=== PATIENT | female | born 1995 | race Caucasian/White ===

== ENCOUNTER 2020-05-11 14:44 | Inpatient (IN) | payer MEDICARE, MEDICAID ==
[~2020-05-11] VITALS: Ht 165.1 cm; Wt 81.4 kg
[2020-05-11] MEDS ORDERED: MOM30 PO (14:52)
[2020-05-11] MEDS ORDERED: IBUP-2070 PO (14:52)
[2020-05-11] MEDS ORDERED: HYD25 PO (14:52)
[2020-05-11] MEDS ORDERED: CHLO25TA47 PO (14:52)
[2020-05-11] MEDS ORDERED: MIRT-89 PO (14:52)
[2020-05-11] MEDS ORDERED: ACET-2247 PO (14:52)
[2020-05-11] MEDS ORDERED: METH20CP12 PO (14:52)
[2020-05-11 16:30] LABS: AMPHET/METH SCREEN,URINE NEGATIVE (NEGATIVE); BARBITURATE SCREEN, URINE NEGATIVE (NEGATIVE); BENZODIAZEPINES SCREEN,URINE NEGATIVE (NEGATIVE); CANNABINOID SCREEN,URINE NEGATIVE (NEGATIVE); COCAINE SCREEN,URINE NEGATIVE (NEGATIVE); METHADONE SCREEN, URINE NEGATIVE (NEGATIVE); OPIATE SCREEN,URINE NEGATIVE (NEGATIVE)
[2020-05-11 16:32] LABS: PHENCYCLIDINE SCREEN,URINE NEGATIVE (NEGATIVE)
[2020-05-11 16:53] LABS: ANION GAP 10 mmol/L (8-16); CALCIUM, TOTAL 8.6 mg/dL (8.8-10.5); CARBON DIOXIDE 25 mmol/L (22-29); CHLORIDE 105 mmol/L (98-107); CREATININE 0.59 mg/dL (0.60-1.30); GLOMERULAR FILTR. RATE CALC > 60 mL/min (>60); GLUCOSE,RANDOM 88 mg/dL (70-110); POTASSIUM 3.6 mmol/L (3.5-5.1); SODIUM SERUM 140 mmol/L (136-145); UREA NITROGEN, BLOOD 8 mg/dL (7-18)
[2020-05-11 16:59] LABS: ALANINE AMINOTRANSFERASE 29 U/L (12-78); ALBUMIN 3.5 g/dL (3.4-5.0); ALKALINE PHOSPHATASE 102 U/L (46-116); ASPARTATE AMINOTRANSFERASE 20 U/L (15-37); BILIRUBIN,TOTAL 0.4 mg/dL (0.1-1.0); TOTAL PROTEIN, SERUM 7.3 g/dL (6.4-8.2)
[2020-05-11 17:23] LABS: BASOPHILS % (AUTO) 0.3 % (0.0-2.0); EOSINOPHILS % (AUTO) 3.1 % (1.0-6.0); HEMATOCRIT 37.2 % (36-46); LYMPHOCYTES # (AUTO) 1.6 K/uL (1.0-4.8); LYMPHOCYTES % (AUTO) 23.8 % (22.0-44.0); MEAN CORPUSCULAR HEMOGLOBIN 23.7 pg (26.0-34.0); MEAN CORPUSCULAR HGB CONC 32.2 G/dL (31.0-37.0); MEAN CORPUSCULAR VOLUME 74 fL (80-100); MONOCYTES # (AUTO) 0.5 K/uL (0.1-1.0); MONOCYTES % (AUTO) 7.9 % (2.0-9.0); NEUTROPHILS # (AUTO) 4.3 K/uL (1.8-7.7); NEUTROPHILS % (AUTO) 64.9 % (40.0-70.0); PLATELET COUNT (AUTO) 239 K/uL (150-450); RED BLOOD CELL COUNT(AUTO) 5.04 MIL/uL (4.00-5.20); RED CELL DISTRIBUTION WIDTH 16.8 % (11.5-14.5)
[2020-05-11] MEDS ORDERED: ChlorproMAZINE HCL 100 MG TABLET PO PRN (17:30)
[2020-05-11] MEDS ORDERED: PROMETHAZINE HCL 25 MG TABLET PO PRN (17:30)
[2020-05-11] MEDS ORDERED: MAG HYDROX/AL HYDROX/SIMETH ES 30 ML SUSPENSION UDCUP PO PRN (17:30)
[2020-05-11] MEDS ORDERED: HydrOXYzine PAMOATE 50 MG CAPSULE PO PRN (17:30)
[2020-05-11] MEDS ORDERED: TUBERCULIN, PURIFIED PROTEIN DERIVATIVE 5 TU/0.1 ML SYRINGE ID ONE (17:30)
[2020-05-11] MEDS ORDERED: ACETAMINOPHEN 325 MG TABLET PO PRN (17:30)
[2020-05-11] MEDS ORDERED: GuaiFENesin/D-METHORPHAN [SUGAR-FREE] 200-20MG/10 ML SYRUP UDCUP PO PRN (17:30)
[2020-05-11] MEDS ORDERED: MAGNESIUM HYDROXIDE SUSPENSION 30 ML UDCUP PO PRN (17:30)
[2020-05-11] MEDS ORDERED: ZOLPIDEM TARTRATE 10 MG TABLET PO PRN (17:30)
[2020-05-11] MEDS ORDERED: LOPERAMIDE HCL 2 MG CAPSULE PO PRN (17:30)
[2020-05-11] MEDS ORDERED: LORazepam 2 MG TABLET PO PRN (17:30)
[2020-05-11 18:58] VITALS: BP 134/89
[2020-05-11 19:05] LABS: HCG,QUANTITATIVE < 1 mIU/mL (0-6)
[2020-05-11] MEDS: THIAMINE 100 MG TABLET PO SCH (20:29)
[2020-05-11] MEDS: DIVALPROEX SODIUM 500 MG ER TABLET PO SCH (20:30)
[2020-05-11] MEDS: MIRTAZAPINE 15 MG TABLET PO SCH (20:30)
[2020-05-11] MEDS: ChlorproMAZINE HCL 25 MG TABLET PO SCH (20:30)
[2020-05-12 07:28] LABS: HEMOGLOBIN A1C 5.4 % (3.8-5.6)
[2020-05-12 07:29] LABS: CHOL/HDL RATIO 3.4 (3.9-5.7); THYROID STIMULATING HORMONE 1.38 uIU/mL (0.36-3.74)
[2020-05-12] MEDS: FOLIC ACID 1 MG TABLET PO SCH (08:56)
[2020-05-12] MEDS: MULTIVITAMINS WITH MINERALS, THERAPEUTIC TABLET PO SCH (08:56)
[2020-05-12] MEDS: THIAMINE 100 MG TABLET PO SCH ×2 (08:56→17:23)
[2020-05-12] MEDS: ChlorproMAZINE HCL 25 MG TABLET PO SCH ×3 (08:56→17:23)
[2020-05-12] MEDS: ATOMOXETINE HCL 25 MG CAPSULE PO SCH (08:56)
[2020-05-12 10:02] VITALS: BP 110/83
[2020-05-12 12:33] VITALS: BP 114/76
[2020-05-12 18:25] VITALS: BP 103/67
[2020-05-12] MEDS: MIRTAZAPINE 15 MG TABLET PO SCH (20:39)
[2020-05-12] MEDS: DIVALPROEX SODIUM 500 MG ER TABLET PO SCH (20:39)
[2020-05-13 08:00] VITALS: BP 137/95
[2020-05-13] MEDS: ATOMOXETINE HCL 25 MG CAPSULE PO SCH (08:35)
[2020-05-13] MEDS: MULTIVITAMINS WITH MINERALS, THERAPEUTIC TABLET PO SCH (08:35)
[2020-05-13] MEDS: ChlorproMAZINE HCL 25 MG TABLET PO SCH ×3 (08:35→16:52)
[2020-05-13] MEDS: FOLIC ACID 1 MG TABLET PO SCH (08:35)
[2020-05-13] MEDS: THIAMINE 100 MG TABLET PO SCH ×2 (08:35→16:52)
[2020-05-13 16:00] VITALS: BP 111/61
[2020-05-13] MEDS: DIVALPROEX SODIUM 500 MG ER TABLET PO SCH (20:29)
[2020-05-13] MEDS: MIRTAZAPINE 30 MG TABLET PO SCH (20:30)
[2020-05-14] MEDS ORDERED: ATOMOXETINE HCL 40 MG CAPSULE PO SCH ×2 (09:00)
[2020-05-14] MEDS ORDERED: ATOMOXETINE HCL 10 MG CAPSULE PO SCH (09:00)
[2020-05-14] MEDS: MULTIVITAMINS WITH MINERALS, THERAPEUTIC TABLET PO SCH (09:06)
[2020-05-14] MEDS: THIAMINE 100 MG TABLET PO SCH ×2 (09:06→16:21)
[2020-05-14] MEDS: FOLIC ACID 1 MG TABLET PO SCH (09:06)
[2020-05-14] MEDS: ChlorproMAZINE HCL 25 MG TABLET PO SCH ×3 (09:07→16:21)
[2020-05-14] MEDS: ATOMOXETINE HCL 40 MG CAPSULE PO SCH (09:11)
[2020-05-14 13:44] VITALS: BP 114/68
[2020-05-14 16:16] VITALS: BP 103/70
[2020-05-14] MEDS: DIVALPROEX SODIUM 500 MG ER TABLET PO SCH (20:07)
[2020-05-14] MEDS: MIRTAZAPINE 30 MG TABLET PO SCH (20:07)
[2020-05-15 00:25] VITALS: BP 129/76
[2020-05-15 08:55] VITALS: BP 116/83
[2020-05-15] MEDS: ChlorproMAZINE HCL 25 MG TABLET PO SCH ×3 (09:17→20:18)
[2020-05-15] MEDS: ATOMOXETINE HCL 40 MG CAPSULE PO SCH (09:17)
[2020-05-15] MEDS: FOLIC ACID 1 MG TABLET PO SCH (09:17)
[2020-05-15] MEDS: MULTIVITAMINS WITH MINERALS, THERAPEUTIC TABLET PO SCH (09:17)
[2020-05-15] MEDS: THIAMINE 100 MG TABLET PO SCH ×2 (09:17→20:18)
[2020-05-15 12:13] VITALS: BP 116/83
[2020-05-15 16:00] VITALS: BP 126/73
[2020-05-15] MEDS: DIVALPROEX SODIUM 500 MG ER TABLET PO SCH (20:18)
[2020-05-15] MEDS: MIRTAZAPINE 30 MG TABLET PO SCH (20:18)
[2020-05-16 08:00] VITALS: BP 115/78
[2020-05-16] MEDS: ATOMOXETINE HCL 40 MG CAPSULE PO SCH (11:00)
[2020-05-16] MEDS: ChlorproMAZINE HCL 25 MG TABLET PO SCH ×3 (11:03→16:25)
[2020-05-16] MEDS: FOLIC ACID 1 MG TABLET PO SCH (11:05)
[2020-05-16] MEDS: MULTIVITAMINS WITH MINERALS, THERAPEUTIC TABLET PO SCH (11:05)
[2020-05-16] MEDS: THIAMINE 100 MG TABLET PO SCH ×3 (11:05→16:25)
[2020-05-16] MEDS: CloNIDine HCL 0.1 MG TABLET PO SCH ×2 (11:13→17:31)
[2020-05-16 16:00] VITALS: BP 101/67
[2020-05-16] MEDS: DIVALPROEX SODIUM 500 MG ER TABLET PO SCH (20:11)
[2020-05-16] MEDS: MIRTAZAPINE 30 MG TABLET PO SCH (20:11)
[2020-05-17 08:00] VITALS: BP 128/87
[2020-05-17] MEDS: ATOMOXETINE HCL 40 MG CAPSULE PO SCH (09:00)
[2020-05-17] MEDS: ChlorproMAZINE HCL 25 MG TABLET PO SCH ×3 (10:40→17:16)
[2020-05-17] MEDS: THIAMINE 100 MG TABLET PO SCH ×2 (10:41→17:16)
[2020-05-17] MEDS: MULTIVITAMINS WITH MINERALS, THERAPEUTIC TABLET PO SCH (10:42)
[2020-05-17] MEDS: CloNIDine HCL 0.1 MG TABLET PO SCH ×2 (10:42→17:24)
[2020-05-17] MEDS: FOLIC ACID 1 MG TABLET PO SCH (10:42)
[2020-05-17] MEDS ORDERED: DIVA-80 PO (11:41)
[2020-05-17] MEDS ORDERED: MIRT30 PO ×2 (11:41→11:44)
[2020-05-17] MEDS ORDERED: CLON0.1T83 PO (11:41)
[2020-05-17] MEDS ORDERED: CHLO25TA47 PO (11:41)
[2020-05-17] MEDS ORDERED: ATOM40CA9 PO (11:41)
[2020-05-17 16:15] VITALS: BP 114/81
[2020-05-17] MEDS: DIVALPROEX SODIUM 500 MG ER TABLET PO SCH (20:06)
[2020-05-17] MEDS ORDERED: MIRTAZAPINE 30 MG TABLET PO SCH (21:00)
[2020-05-18] MEDS ORDERED: ATOMOXETINE HCL 40 MG CAPSULE PO SCH (09:00)
[2020-05-18] MEDS ORDERED: ATOMOXETINE HCL 10 MG CAPSULE PO SCH (09:00)
[2020-05-18] MEDS: ChlorproMAZINE HCL 25 MG TABLET PO SCH ×2 (10:02→13:48)
[2020-05-18] MEDS: FOLIC ACID 1 MG TABLET PO SCH (10:02)
[2020-05-18] MEDS: MULTIVITAMINS WITH MINERALS, THERAPEUTIC TABLET PO SCH (10:05)
[2020-05-18] MEDS: THIAMINE 100 MG TABLET PO SCH (10:06)
[2020-05-18] MEDS: CloNIDine HCL 0.1 MG TABLET PO SCH (10:10)
== END 2020-05-18 14:34 | disposition home or self-care (01) | DRG 885 ==
LOC: EMS 14:50 → 3EI 18:05
PROVIDERS: ADMIT Psychiatry & Neurology Psychiatry; ATTEND Psychiatry & Neurology Psychiatry
DX: F31.9 Bipolar disorder, unspecified (principal); D75.89 Other specified diseases of blood and blood-forming organs; F41.9 Anxiety disorder, unspecified; G47.00 Insomnia, unspecified; K59.00 Constipation, unspecified; Z91.19 Patient's noncompliance with other medical treatment and regimen; Z79.899 Other long term (current) drug therapy
CPT/HCPCS: 83036; 84443; 86592; 93005; G0480

== ENCOUNTER 2021-10-26 17:47 | Emergency (ER) | payer MEDICAID, MEDICARE, OTHER ==
[~2021-10-26] VITALS: Ht 167.6 cm; Wt 90.9 kg
[~2021-10-26 17:47] MED LIST: ATOM40CA9 PO; CHLO25TA69 PO; CLON0.1T2 PO; DIVA-80 PO; MIRT30 PO
[2021-10-26] MEDS ORDERED: DOXYCYCLINE HYCLATE 100 MG TABLET PO ONE (19:30)
[2021-10-26] MEDS ORDERED: ACETAMINOPHEN 500 MG TABLET PO ONE (19:30)
[2021-10-26 19:39] VITALS: BP 133/78
== END 2021-10-26 20:20 | disposition home or self-care (01) ==
LOC: EMS 17:49
DX: N61.0 Mastitis without abscess (principal); F31.9 Bipolar disorder, unspecified; Z88.8 Allergy status to other drugs, medicaments and biological substances; Z79.899 Other long term (current) drug therapy
CPT/HCPCS: 99283; 99284

== ENCOUNTER 2022-09-11 05:47 | Emergency (ER) | payer OTHER ==
[~2022-09-11] VITALS: Ht 165.1 cm; Wt 95.0 kg
[2022-09-11] MEDS ORDERED: LURA20TA PO (06:24)
[2022-09-11 06:42] VITALS: BP 134/74
[2022-09-11] MEDS ORDERED: IBUP-2070 PO (06:43)
[2022-09-11] MEDS ORDERED: IBUPROFEN 600 MG TABLET PO ONE (06:45)
== END 2022-09-11 07:04 | disposition home or self-care (01) ==
LOC: EMS 05:48
DX: M79.661 Pain in right lower leg (principal); F31.9 Bipolar disorder, unspecified; I10 Essential (primary) hypertension; Z88.8 Allergy status to other drugs, medicaments and biological substances
CPT/HCPCS: 99282; Z7502; Z7610

== ENCOUNTER 2022-11-16 00:14 | Emergency (ER) | payer OTHER ==
[~2022-11-16] VITALS: Ht 167.6 cm; Wt 107.3 kg
[~2022-11-16 00:14] MED LIST changes: +IBUP-1492 PO; +LURA20TA PO; +MIRT-149 PO; -MIRT30 PO
[2022-11-16 00:59] LABS: BASOPHILS % (AUTO) 0.5 % (0.0-2.0); EOSINOPHILS % (AUTO) 0.3 % (1.0-6.0); HEMATOCRIT 40.1 % (36-46); HEMOGLOBIN 13.3 g/dL (12.0-16.0); LYMPHOCYTES # (AUTO) 3.2 K/uL (1.0-4.8); LYMPHOCYTES % (AUTO) 23.6 % (22.0-44.0); MEAN CORPUSCULAR HEMOGLOBIN 28.5 pg (26.0-34.0); MEAN CORPUSCULAR HGB CONC 33.2 G/dL (31.0-37.0); MEAN CORPUSCULAR VOLUME 86 fL (80-100); MONOCYTES # (AUTO) 1.6 K/uL (0.1-1.0); MONOCYTES % (AUTO) 11.5 % (2.0-9.0); NEUTROPHILS # (AUTO) 8.8 K/uL (1.8-7.7); NEUTROPHILS % (AUTO) 64.1 % (40.0-70.0); PLATELET COUNT (AUTO) 246 K/uL (150-450); RED BLOOD CELL COUNT(AUTO) 4.67 MIL/uL (4.00-5.20); RED CELL DISTRIBUTION WIDTH 15.4 % (11.5-14.5)
[2022-11-16 01:09] LABS: ANION GAP 7 mmol/L (8-16); CARBON DIOXIDE 30 mmol/L (22-29); CHLORIDE 103 mmol/L (98-107); CREATININE 0.84 mg/dL (0.60-1.30); GLUCOSE,RANDOM 97 mg/dL (70-110); POTASSIUM 3.9 mmol/L (3.5-5.1); SODIUM SERUM 140 mmol/L (136-145); UREA NITROGEN, BLOOD 16 mg/dL (7-18)
[2022-11-16 01:11] LABS: APPEARANCE,URINE CLEAR (CLEAR); BILIRUBIN,URINE NEGATIVE (NEGATIVE); GLUCOSE, URINE (UA) NEGATIVE (NEGATIVE); LEUKOCYTE ESTERASE ,URINE TRACE (NEGATIVE); NITRATE,URINE NEGATIVE (NEGATIVE); OCCULT BLOOD,URINE SMALL (NEGATIVE); PROTEIN,URINE TRACE mg/dL (NEGATIVE); SPECIFIC GRAVITIY, URINE 1.024 (1.003-1.030)
[2022-11-16 01:15] LABS: ALANINE AMINOTRANSFERASE 32 U/L (12-78); ALBUMIN 2.8 g/dL (3.4-5.0); ALKALINE PHOSPHATASE 129 U/L (46-116); ASPARTATE AMINOTRANSFERASE 28 U/L (15-37); BILIRUBIN,TOTAL 0.3 mg/dL (0.1-1.0); GLOMERULAR FILTR. RATE CALC > 60 mL/min (>60); LIPASE 86 U/L (73-393); TOTAL PROTEIN, SERUM 7.5 g/dL (6.4-8.2)
[2022-11-16 01:17] LABS: AMPHET/METH SCREEN,URINE NEGATIVE (NEGATIVE); BARBITURATE SCREEN, URINE NEGATIVE (NEGATIVE); BENZODIAZEPINES SCREEN,URINE NEGATIVE (NEGATIVE); CANNABINOID SCREEN,URINE NEGATIVE (NEGATIVE); COCAINE SCREEN,URINE NEGATIVE (NEGATIVE); METHADONE SCREEN, URINE NEGATIVE (NEGATIVE); OPIATE SCREEN,URINE NEGATIVE (NEGATIVE)
[2022-11-16 01:19] LABS: PHENCYCLIDINE SCREEN,URINE NEGATIVE (NEGATIVE)
[2022-11-16 01:21] LABS: BACTERIA,URINE None Seen /HPF (None Seen); RBC,URINE 0-2 /HPF (0-2); SQUAMOUS EPITHELIAL CELL,UR Moderate /LPF (None Seen); WBC,URINE 0-2 /HPF (0-5)
[2022-11-16] MEDS ORDERED: ACETAMINOPHEN 500 MG TABLET PO ONE (02:30)
[2022-11-16] MEDS ORDERED: DiphenhydrAMINE HCL 25 MG CAPSULE PO ONE (02:30)
[2022-11-16 02:50] VITALS: BP 119/65
[2022-11-16] MEDS ORDERED: ACET-66 PO (03:02)
[2022-11-16] MEDS ORDERED: MAG30ORA11 PO (03:02)
== END 2022-11-16 03:20 | disposition home or self-care (01) ==
LOC: EMS 00:15
DX: K29.70 Gastritis, unspecified, without bleeding (principal); R10.13 Epigastric pain; F31.9 Bipolar disorder, unspecified; F41.9 Anxiety disorder, unspecified; I10 Essential (primary) hypertension; Z88.2 Allergy status to sulfonamides
CPT/HCPCS: 74176; 80053; 81001; 83690; 84703; 85025; 99284

== ENCOUNTER 2022-12-31 20:45 | Emergency (ER) | payer OTHER ==
[~2022-12-31] VITALS: Ht 165.1 cm; Wt 69.0 kg
[~2022-12-31 20:45] MED LIST changes: +ACET-66 PO; -DIVA-80 PO; +DIVA500T53 PO; +MAG30ORA11 PO
[2022-12-31] MEDS ORDERED: SODIUM CHLORIDE 0.9% 1,000 ML IV ONE (22:15)
[2022-12-31] MEDS ORDERED: ONDANSETRON HCL 4 MG/2 ML VIAL IVP ONE (22:15)
[2022-12-31 22:19] LABS: BASOPHILS % (AUTO) 0.1 % (0.0-2.0); EOSINOPHILS % (AUTO) 0.1 % (1.0-6.0); HEMATOCRIT 42.3 % (36-46); LYMPHOCYTES % (AUTO) 5.6 % (22.0-44.0); MEAN CORPUSCULAR HEMOGLOBIN 28.3 pg (26.0-34.0); MEAN CORPUSCULAR VOLUME 86 fL (80-100); MONOCYTES # (AUTO) 1.7 K/uL (0.1-1.0); MONOCYTES % (AUTO) 9.8 % (2.0-9.0); NEUTROPHILS # (AUTO) 14.9 K/uL (1.8-7.7); NEUTROPHILS % (AUTO) 84.4 % (40.0-70.0); PLATELET COUNT (AUTO) 284 K/uL (150-450); RED BLOOD CELL COUNT(AUTO) 4.94 MIL/uL (4.00-5.20)
[2022-12-31 22:30] LABS: ANION GAP 8 mmol/L (8-16); CALCIUM, TOTAL 8.8 mg/dL (8.8-10.5); CARBON DIOXIDE 29 mmol/L (22-29); CHLORIDE 99 mmol/L (98-107); GLOMERULAR FILTR. RATE CALC > 60 mL/min (>60); GLUCOSE,RANDOM 124 mg/dL (70-110); POTASSIUM 4.9 mmol/L (3.5-5.1); SODIUM SERUM 136 mmol/L (136-145); UREA NITROGEN, BLOOD 14 mg/dL (7-18)
[2022-12-31 22:42] LABS: ALANINE AMINOTRANSFERASE 37 U/L (12-78); ALKALINE PHOSPHATASE 133 U/L (46-116); ASPARTATE AMINOTRANSFERASE 29 U/L (15-37); BILIRUBIN,TOTAL 0.4 mg/dL (0.1-1.0); HCG,QUANTITATIVE < 1 mIU/mL (0-6); LIPASE 84 U/L (73-393); TOTAL PROTEIN, SERUM 8.2 g/dL (6.4-8.2); VALPROIC ACID 72 mcg/mL (50-100)
[2022-12-31 22:43] LABS: APPEARANCE,URINE CLEAR (CLEAR); BILIRUBIN,URINE NEGATIVE (NEGATIVE); GLUCOSE, URINE (UA) NEGATIVE (NEGATIVE); LEUKOCYTE ESTERASE ,URINE NEGATIVE (NEGATIVE); NITRATE,URINE NEGATIVE (NEGATIVE); OCCULT BLOOD,URINE TRACE (NEGATIVE); PH,URINE 6.5 (5.0-8.0); PROTEIN,URINE NEGATIVE (NEGATIVE); SPECIFIC GRAVITIY, URINE 1.019 (1.003-1.030); UROBILINOGEN,URINE <=1.0 mg/dL (<=1.0)
[2022-12-31 22:52] LABS: COVID AG,FIA SOURCE NASAL SWAB
[2022-12-31 23:35] LABS: INFLUENZA TYPE A NEGATIVE FOR TYPE A (NEGATIVE); INFLUENZA TYPE B NEGATIVE FOR TYPE B (NEGATIVE)
[2022-12-31 23:42] LABS: BACTERIA,URINE None Seen /HPF (None Seen); RBC,URINE 0-2 /HPF (0-2); SQUAMOUS EPITHELIAL CELL,UR Moderate /LPF (None Seen); WBC,URINE None Seen /HPF (0-5)
[2023-01-01] MEDS ORDERED: PB/HYOSCY/ATR/SCOP/LIDO/MAALOX 55 ML BOTTLE PO ONE (00:45)
[2023-01-01] MEDS ORDERED: SODIUM CHLORIDE 0.9% 100 ML ONE (00:46)
[2023-01-01] MEDS ORDERED: IOHEXOL 350 MG/ML 100 ML VIAL ONE (00:47)
[2023-01-01] MEDS ORDERED: ONDANSETRON HCL 4 MG/2 ML VIAL IVP ONE (01:15)
[2023-01-01] MEDS ORDERED: ONDA-104 PO (05:51)
[2023-01-01 06:09] VITALS: BP 116/71
== END 2023-01-01 06:40 | disposition home or self-care (01) ==
LOC: EMS 20:48
DX: R10.33 Periumbilical pain (principal); F31.9 Bipolar disorder, unspecified; R11.2 Nausea with vomiting, unspecified; I10 Essential (primary) hypertension; Z88.2 Allergy status to sulfonamides; Z88.8 Allergy status to other drugs, medicaments and biological substances; Z20.822 Contact with and (suspected) exposure to COVID-19
CPT/HCPCS: 99285; 96374; 96361; 87426; 80053; 80164; 81001; 83690; 84702; 85025; 87804; 36415; 74177; 96376; J2405 ×2; J7030; Q9967; J7050

== ENCOUNTER 2023-05-27 14:31 | Emergency (ER) | payer OTHER ==
[~2023-05-27] VITALS: Ht 165.1 cm; Wt 65.9 kg
[~2023-05-27 14:31] MED LIST changes: +ONDA-104 PO
[2023-05-27 16:10] VITALS: BP 130/78; PULSE 96; RESP 18; TEMP 98
[2023-05-27] MEDS ORDERED: DOXY-354 PO (16:11)
== END 2023-05-27 20:29 | disposition home or self-care (01) ==
LOC: EMS 14:31
DX: L02.412 Cutaneous abscess of left axilla (principal); F31.9 Bipolar disorder, unspecified; I10 Essential (primary) hypertension; F20.9 Schizophrenia, unspecified; Z98.890 Other specified postprocedural states; Z88.2 Allergy status to sulfonamides; Z88.8 Allergy status to other drugs, medicaments and biological substances
CPT/HCPCS: 99283; Z7502

== ENCOUNTER 2023-07-27 05:48 | Emergency (ER) | payer OTHER ==
[~2023-07-27] VITALS: Ht 165.1 cm; Wt 86.0 kg
[~2023-07-27 05:48] MED LIST changes: +DOXY-354 PO
[2023-07-27 05:55] VITALS: TEMP 97.7
[2023-07-27 11:35] VITALS: BP 116/82; PULSE 89; RESP 16
== END 2023-07-27 12:32 | disposition home or self-care (01) ==
LOC: EMS 05:51
DX: S93.401A Sprain of unspecified ligament of right ankle, initial encounter (principal); F31.9 Bipolar disorder, unspecified; I10 Essential (primary) hypertension; F20.9 Schizophrenia, unspecified; Z98.890 Other specified postprocedural states; Z88.2 Allergy status to sulfonamides; Z88.8 Allergy status to other drugs, medicaments and biological substances; X50.1XXA Overexertion from prolonged static or awkward postures, initial encounter; Y93.89 Activity, other specified; Y92.89 Other specified places as the place of occurrence of the external cause; Y99.8 Other external cause status
CPT/HCPCS: 99283

== ENCOUNTER 2023-07-29 17:47 | Emergency (ER) | payer OTHER ==
[~2023-07-29] VITALS: Ht 165.1 cm; Wt 97.7 kg
[2023-07-29 18:52] VITALS: TEMP 98.8
[2023-07-29 22:11] LABS: BASOPHILS % (AUTO) 0.6 % (0.0-2.0); EOSINOPHILS % (AUTO) 0.2 % (1.0-6.0); HEMATOCRIT 39.8 % (36-46); HEMOGLOBIN 12.8 g/dL (12.0-16.0); LYMPHOCYTES # (AUTO) 2.2 K/uL (1.0-4.8); LYMPHOCYTES % (AUTO) 18.5 % (22.0-44.0); MEAN CORPUSCULAR HEMOGLOBIN 27.5 pg (26.0-34.0); MEAN CORPUSCULAR VOLUME 86 fL (80-100); MONOCYTES # (AUTO) 1.2 K/uL (0.1-1.0); MONOCYTES % (AUTO) 9.7 % (2.0-9.0); NEUTROPHILS # (AUTO) 8.5 K/uL (1.8-7.7); PLATELET COUNT (AUTO) 251 K/uL (150-450); RED BLOOD CELL COUNT(AUTO) 4.63 MIL/uL (4.00-5.20); RED CELL DISTRIBUTION WIDTH 15.6 % (11.5-14.5)
[2023-07-29 22:16] LABS: ANION GAP 2 mmol/L (8-16); CALCIUM, TOTAL 9.1 mg/dL (8.8-10.5); CARBON DIOXIDE 30 mmol/L (22-29); CHLORIDE 98 mmol/L (98-107); CREATININE 0.71 mg/dL (0.60-1.30); GLOMERULAR FILTR. RATE CALC > 60 mL/min (>60); GLUCOSE,RANDOM 94 mg/dL (70-110); POTASSIUM 3.8 mmol/L (3.5-5.1); SODIUM SERUM 130 mmol/L (136-145); UREA NITROGEN, BLOOD 9 mg/dL (7-18)
[2023-07-29 22:28] LABS: ALANINE AMINOTRANSFERASE 37 U/L (12-78); ALBUMIN 2.8 g/dL (3.4-5.0); ALKALINE PHOSPHATASE 119 U/L (46-116); ASPARTATE AMINOTRANSFERASE 42 U/L (15-37); BILIRUBIN,TOTAL 0.5 mg/dL (0.1-1.0); HCG,QUANTITATIVE < 1 mIU/mL (0-6); LIPASE 21 U/L (16-77); TOTAL PROTEIN, SERUM 7.5 g/dL (6.4-8.2)
[2023-07-29] MEDS ORDERED: FAMOTIDINE 20 MG/2 ML VIAL IVP ONE (23:30)
[2023-07-29] MEDS ORDERED: SODIUM CHLORIDE 0.9% 1,000 ML IV ONE (23:30)
[2023-07-29] MEDS ORDERED: KETOROLAC TROMETHAMINE 30 MG/ML VIAL IVP ONE (23:30)
[2023-07-30] MEDS ORDERED: FAMO20 PO (00:59)
[2023-07-30 01:09] VITALS: BP 110/80; PULSE 80; RESP 16
== END 2023-07-30 01:10 | disposition home or self-care (01) ==
LOC: EMS 17:47
DX: R10.13 Epigastric pain (principal); K29.70 Gastritis, unspecified, without bleeding; I10 Essential (primary) hypertension; F31.9 Bipolar disorder, unspecified; F20.9 Schizophrenia, unspecified; Z88.2 Allergy status to sulfonamides; Z88.8 Allergy status to other drugs, medicaments and biological substances
CPT/HCPCS: 99285; 96374; 76700; 80053; 83690; 84702; 85025; 96361; 96375; J3490; J1885; J7030

== ENCOUNTER 2023-08-10 16:51 | Emergency (ER) | payer OTHER ==
[~2023-08-10] VITALS: Ht 165.1 cm; Wt 109.1 kg
[~2023-08-10 16:51] MED LIST changes: +FAMO20 PO
[2023-08-10 17:20] VITALS: TEMP 97.4
[2023-08-10] MEDS ORDERED: CLON-441 PO (17:25)
[2023-08-10] MEDS ORDERED: TRAZ-257 PO (17:25)
[2023-08-10] MEDS ORDERED: CLINDAMYCIN 1% TP (17:25)
[2023-08-10] MEDS ORDERED: [UNRECOGNIZED DRUG - REMARK] PO (17:25)
[2023-08-10] MEDS ORDERED: ONDA4TAB96 PO (17:25)
[2023-08-10] MEDS ORDERED: NYST30CR9 TP (17:25)
[2023-08-10] MEDS ORDERED: GERI-LANTA PO (17:25)
[2023-08-10] MEDS ORDERED: DIVA500T53 PO (17:25)
[2023-08-10] MEDS ORDERED: PROP10TA73 PO (17:25)
[2023-08-10] MEDS ORDERED: DOXY50 PO (17:25)
[2023-08-10] MEDS ORDERED: ACET-784 PO (17:25)
[2023-08-10] MEDS ORDERED: LURA60TA PO (17:25)
[2023-08-10 18:54] LABS: BASOPHILS % (AUTO) 0.5 % (0.0-2.0); EOSINOPHILS % (AUTO) 0.3 % (1.0-6.0); HEMATOCRIT 37.9 % (36-46); HEMOGLOBIN 12.4 g/dL (12.0-16.0); LYMPHOCYTES # (AUTO) 3.6 K/uL (1.0-4.8); LYMPHOCYTES % (AUTO) 24.7 % (22.0-44.0); MEAN CORPUSCULAR HGB CONC 32.7 G/dL (31.0-37.0); MEAN CORPUSCULAR VOLUME 86 fL (80-100); MONOCYTES # (AUTO) 1.6 K/uL (0.1-1.0); MONOCYTES % (AUTO) 11.2 % (2.0-9.0); NEUTROPHILS # (AUTO) 9.3 K/uL (1.8-7.7); NEUTROPHILS % (AUTO) 63.3 % (40.0-70.0); PLATELET COUNT (AUTO) 248 K/uL (150-450); RED BLOOD CELL COUNT(AUTO) 4.42 MIL/uL (4.00-5.20); RED CELL DISTRIBUTION WIDTH 15.9 % (11.5-14.5); WHITE BLOOD COUNT (AUTO) 14.7 K/uL (4.5-11.0)
[2023-08-10 18:55] VITALS: BP 122/63
[2023-08-10 19:05] LABS: ANION GAP 9 mmol/L (8-16); CALCIUM, TOTAL 9.1 mg/dL (8.8-10.5); CARBON DIOXIDE 27 mmol/L (22-29); CHLORIDE 101 mmol/L (98-107); CREATININE 0.68 mg/dL (0.60-1.30); GLOMERULAR FILTR. RATE CALC > 60 mL/min (>60); GLUCOSE,RANDOM 88 mg/dL (70-110); POTASSIUM 3.9 mmol/L (3.5-5.1); SODIUM SERUM 137 mmol/L (136-145); UREA NITROGEN, BLOOD 14 mg/dL (7-18)
[2023-08-10 19:11] LABS: ALANINE AMINOTRANSFERASE 25 U/L (12-78); ALBUMIN 2.7 g/dL (3.4-5.0); ALKALINE PHOSPHATASE 108 U/L (46-116); ASPARTATE AMINOTRANSFERASE 25 U/L (15-37); BILIRUBIN,TOTAL 0.3 mg/dL (0.1-1.0); LIPASE 32 U/L (16-77)
[2023-08-10 19:29] LABS: APPEARANCE,URINE CLEAR (CLEAR); BILIRUBIN,URINE NEGATIVE (NEGATIVE); COLOR,URINE LIGHT YELLOW (YELLOW); GLUCOSE, URINE (UA) NEGATIVE (NEGATIVE); KETONES,URINE TRACE mg/dL (NEGATIVE); LEUKOCYTE ESTERASE ,URINE NEGATIVE (NEGATIVE); NITRATE,URINE NEGATIVE (NEGATIVE); OCCULT BLOOD,URINE NEGATIVE (NEGATIVE); PROTEIN,URINE NEGATIVE (NEGATIVE); SPECIFIC GRAVITIY, URINE 1.019 (1.003-1.030); UROBILINOGEN,URINE <=1.0 mg/dL (<=1.0)
[2023-08-10] MEDS ORDERED: SODIUM CHLORIDE 0.9% 1,000 ML IV ONE (20:30)
[2023-08-10] MEDS ORDERED: FAMOTIDINE 20 MG/2 ML VIAL IVP ONE (20:30)
[2023-08-10 22:52] VITALS: PULSE 83; RESP 17
== END 2023-08-10 23:15 | disposition home or self-care (01) ==
LOC: EMS 16:54
DX: R10.11 Right upper quadrant pain (principal); F31.9 Bipolar disorder, unspecified; I10 Essential (primary) hypertension; F20.9 Schizophrenia, unspecified; Z98.890 Other specified postprocedural states; Z88.2 Allergy status to sulfonamides; Z88.8 Allergy status to other drugs, medicaments and biological substances
CPT/HCPCS: 99285; 74176; 96374; 76705; 96361; 80053; 81003; 83690; 84703; 85025; 36415; 93005; J3490; J7030

== ENCOUNTER 2023-08-16 16:18 | Emergency (ER) | payer OTHER ==
[~2023-08-16] VITALS: Ht 165.1 cm; Wt 100.0 kg
[~2023-08-16 16:18] MED LIST changes: -ACET-66 PO; +ACET-784 PO; -ATOM40CA9 PO; -CHLO25TA69 PO; +CLINDAMYCIN 1% TP; +CLON-441 PO; -CLON0.1T2 PO; -DOXY-354 PO; +DOXY50 PO; -FAMO20 PO; +GERI-LANTA PO; -IBUP-1492 PO; -LURA20TA PO; +LURA60TA PO; -MAG30ORA11 PO; -MIRT-149 PO; +NYST30CR9 TP; -ONDA-104 PO; +ONDA4TAB96 PO; +PROP10TA73 PO; +TRAZ-257 PO; +[UNRECOGNIZED DRUG - REMARK] PO
[2023-08-16 16:35] VITALS: BP 116/84; PULSE 82; RESP 16; TEMP 98
[2023-08-16 17:16] LABS: COVID AG,FIA SOURCE NASAL SWAB
[2023-08-16 17:47] LABS: INFLUENZA TYPE A NEGATIVE FOR TYPE A (NEGATIVE); INFLUENZA TYPE B NEGATIVE FOR TYPE B (NEGATIVE)
[2023-08-16 17:48] LABS: SARS-COV2 (COVID) ANTIGEN,FIA Negative (Negative)
[2023-08-16 18:03] LABS: RAPID GROUP A STREP NEGATIVE (NEGATIVE)
== END 2023-08-16 18:28 | disposition home or self-care (01) ==
LOC: EMS 16:18
DX: B34.9 Viral infection, unspecified (principal); F31.9 Bipolar disorder, unspecified; I10 Essential (primary) hypertension; F20.9 Schizophrenia, unspecified; Z98.890 Other specified postprocedural states; Z88.2 Allergy status to sulfonamides; Z88.8 Allergy status to other drugs, medicaments and biological substances; Z20.822 Contact with and (suspected) exposure to COVID-19
CPT/HCPCS: 87430; 87804; 99283

== ENCOUNTER 2023-11-03 16:13 | Emergency (ER) | payer OTHER ==
[~2023-11-03] VITALS: Ht 165.1 cm; Wt 109.1 kg
[2023-11-03 17:51] LABS: BASOPHILS % (AUTO) 0.7 % (0.0-2.0); HEMATOCRIT 39.4 % (36-46); LYMPHOCYTES # (AUTO) 1.7 K/uL (1.0-4.8); LYMPHOCYTES % (AUTO) 20.1 % (22.0-44.0); MEAN CORPUSCULAR HEMOGLOBIN 27.5 pg (26.0-34.0); MEAN CORPUSCULAR VOLUME 83 fL (80-100); MONOCYTES # (AUTO) 1.4 K/uL (0.1-1.0); MONOCYTES % (AUTO) 16.4 % (2.0-9.0); NEUTROPHILS # (AUTO) 5.1 K/uL (1.8-7.7); NEUTROPHILS % (AUTO) 58.8 % (40.0-70.0); PLATELET COUNT (AUTO) 227 K/uL (150-450); RED BLOOD CELL COUNT(AUTO) 4.73 MIL/uL (4.00-5.20); RED CELL DISTRIBUTION WIDTH 15.6 % (11.5-14.5); WHITE BLOOD COUNT (AUTO) 8.7 K/uL (4.5-11.0)
[2023-11-03 17:57] LABS: APPEARANCE,URINE CLEAR (CLEAR); BILIRUBIN,URINE NEGATIVE (NEGATIVE); COLOR,URINE LIGHT YELLOW (YELLOW); GLUCOSE, URINE (UA) NEGATIVE (NEGATIVE); KETONES,URINE NEGATIVE (NEGATIVE); LEUKOCYTE ESTERASE ,URINE NEGATIVE (NEGATIVE); NITRATE,URINE NEGATIVE (NEGATIVE); OCCULT BLOOD,URINE NEGATIVE (NEGATIVE); PROTEIN,URINE NEGATIVE (NEGATIVE); SPECIFIC GRAVITIY, URINE 1.017 (1.003-1.030); UROBILINOGEN,URINE <=1.0 mg/dL (<=1.0)
[2023-11-03 18:01] LABS: ANION GAP 1 mmol/L (8-16); CALCIUM, TOTAL 8.9 mg/dL (8.8-10.5); CARBON DIOXIDE 34 mmol/L (22-29); CHLORIDE 100 mmol/L (98-107); CREATININE 0.79 mg/dL (0.60-1.30); GLOMERULAR FILTR. RATE CALC > 60 mL/min (>60); GLUCOSE,RANDOM 83 mg/dL (70-110); SODIUM SERUM 135 mmol/L (136-145); UREA NITROGEN, BLOOD 12 mg/dL (7-18)
[2023-11-03 18:02] LABS: INR 1.1 (0.9-1.1)
[2023-11-03 18:05] LABS: ALCOHOL, URINE DRUG SCREEN NEGATIVE (NEGATIVE); AMPHET/METH SCREEN,URINE NEGATIVE (NEGATIVE); BARBITURATE SCREEN, URINE NEGATIVE (NEGATIVE); BENZODIAZEPINES SCREEN,URINE NEGATIVE (NEGATIVE); CANNABINOID SCREEN,URINE NEGATIVE (NEGATIVE); COCAINE SCREEN,URINE NEGATIVE (NEGATIVE); METHADONE SCREEN, URINE NEGATIVE (NEGATIVE); OPIATE SCREEN,URINE NEGATIVE (NEGATIVE); PHENCYCLIDINE SCREEN,URINE NEGATIVE (NEGATIVE)
[2023-11-03 18:12] LABS: ALANINE AMINOTRANSFERASE 51 U/L (12-78); ALBUMIN 2.7 g/dL (3.4-5.0); ALKALINE PHOSPHATASE 115 U/L (46-116); ASPARTATE AMINOTRANSFERASE 50 U/L (15-37); BILIRUBIN,TOTAL 0.3 mg/dL (0.1-1.0); HCG,QUANTITATIVE < 1 mIU/mL (0-6); LIPASE 27 U/L (16-77); TOTAL PROTEIN, SERUM 7.8 g/dL (6.4-8.2)
[2023-11-03] MEDS ORDERED: ONDANSETRON HCL 4 MG/2 ML VIAL IVP ONE (20:00)
[2023-11-03 20:02] VITALS: TEMP 98.3
[2023-11-03] MEDS ORDERED: ONDA-104 PO (20:08)
[2023-11-03 20:39] VITALS: BP 138/87; PULSE 83; RESP 16
== END 2023-11-03 20:48 | disposition home or self-care (01) ==
LOC: EMS 16:14
DX: R11.2 Nausea with vomiting, unspecified (principal); R10.13 Epigastric pain; F31.9 Bipolar disorder, unspecified; I10 Essential (primary) hypertension; F20.9 Schizophrenia, unspecified; N15.9 Renal tubulo-interstitial disease, unspecified; Z88.2 Allergy status to sulfonamides; Z88.8 Allergy status to other drugs, medicaments and biological substances
CPT/HCPCS: 99285; 96374; 71045; 80053; 81003; 83690; 84702; 85025; 85610; 85730; 86850; 86900; 86901; 36415; 93005; 80307; J2405

== ENCOUNTER 2023-12-07 14:52 | Emergency (ER) | payer OTHER ==
[~2023-12-07] VITALS: Ht 165.1 cm; Wt 106.8 kg
[~2023-12-07 14:52] MED LIST changes: +ONDA-104 PO
[2023-12-07 16:18] VITALS: TEMP 98
[2023-12-07 16:45] LABS: BASOPHILS % (AUTO) 0.5 % (0.0-2.0); EOSINOPHILS % (AUTO) 0.7 % (1.0-6.0); HEMOGLOBIN 12.9 g/dL (12.0-16.0); LYMPHOCYTES # (AUTO) 2.4 K/uL (1.0-4.8); LYMPHOCYTES % (AUTO) 24.7 % (22.0-44.0); MEAN CORPUSCULAR HEMOGLOBIN 28.2 pg (26.0-34.0); MEAN CORPUSCULAR HGB CONC 33.9 G/dL (31.0-37.0); MEAN CORPUSCULAR VOLUME 83 fL (80-100); MONOCYTES % (AUTO) 10.3 % (2.0-9.0); NEUTROPHILS # (AUTO) 6.3 K/uL (1.8-7.7); NEUTROPHILS % (AUTO) 63.8 % (40.0-70.0); PLATELET COUNT (AUTO) 203 K/uL (150-450); RED BLOOD CELL COUNT(AUTO) 4.57 MIL/uL (4.00-5.20); WHITE BLOOD COUNT (AUTO) 9.9 K/uL (4.5-11.0)
[2023-12-07 16:48] LABS: ANION GAP 8 mmol/L (8-16); CARBON DIOXIDE 29 mmol/L (22-29); CHLORIDE 102 mmol/L (98-107); CREATININE 0.77 mg/dL (0.60-1.30); GLOMERULAR FILTR. RATE CALC > 60 mL/min (>60); GLUCOSE,RANDOM 98 mg/dL (70-110); SODIUM SERUM 139 mmol/L (136-145); UREA NITROGEN, BLOOD 14 mg/dL (7-18)
[2023-12-07 16:54] LABS: ALANINE AMINOTRANSFERASE 23 U/L (12-78); ALBUMIN 2.8 g/dL (3.4-5.0); ALKALINE PHOSPHATASE 91 U/L (46-116); ASPARTATE AMINOTRANSFERASE 18 U/L (15-37); BILIRUBIN,TOTAL 0.3 mg/dL (0.1-1.0); TOTAL PROTEIN, SERUM 6.9 g/dL (6.4-8.2)
[2023-12-07] MEDS ORDERED: OMEP20 PO (18:08)
[2023-12-07] MEDS ORDERED: MECL-134 PO (18:08)
[2023-12-07] MEDS ORDERED: ACET-66 PO (18:08)
[2023-12-07] MEDS ORDERED: FAMOTIDINE 20 MG TABLET PO ONE (18:15)
[2023-12-07] MEDS ORDERED: MAG HYDROX/ALUMINUM HYD/SIMETH ES 30 ML SUSPENSION UDCUP PO ONE (18:15)
[2023-12-07] MEDS ORDERED: ACETAMINOPHEN 500 MG TABLET PO ONE (18:15)
[2023-12-07] MEDS ORDERED: MECLIZINE HCL 25 MG TABLET PO ONE (18:15)
[2023-12-07] MEDS ORDERED: DOXY-469 PO (18:18)
[2023-12-07] MEDS ORDERED: RISP0.5T39 PO (18:18)
[2023-12-07] MEDS ORDERED: CLIN30GE22 TP (18:18)
[2023-12-07] MEDS ORDERED: TRAZ150T80 PO (18:18)
[2023-12-07] MEDS ORDERED: BENZ142C8 TP (18:18)
[2023-12-07 20:12] VITALS: BP 119/72; PULSE 72; RESP 15
== END 2023-12-07 20:12 | disposition home or self-care (01) ==
LOC: EMS 14:57
DX: R07.89 Other chest pain (principal); K59.00 Constipation, unspecified; I10 Essential (primary) hypertension; E78.00 Pure hypercholesterolemia, unspecified; F41.9 Anxiety disorder, unspecified; F31.9 Bipolar disorder, unspecified; F20.9 Schizophrenia, unspecified; N15.9 Renal tubulo-interstitial disease, unspecified; Z87.440 Personal history of urinary (tract) infections; Z88.2 Allergy status to sulfonamides
CPT/HCPCS: 80053; 84703; 85025; 85379; 93005; 99284

== ENCOUNTER 2023-12-24 00:16 | Emergency (ER) | payer OTHER ==
[~2023-12-24] VITALS: Ht 165.1 cm; Wt 106.8 kg
[~2023-12-24 00:16] MED LIST changes: +ACET-66 PO; -ACET-784 PO; +BENZ142C8 TP; +CLIN30GE22 TP; -CLINDAMYCIN 1% TP; +DOXY-469 PO; -DOXY50 PO; +MECL-134 PO; +OMEP20 PO; -ONDA4TAB96 PO; +RISP0.5T39 PO; -TRAZ-257 PO; +TRAZ150T80 PO; -[UNRECOGNIZED DRUG - REMARK] PO
[2023-12-24 00:22] VITALS: TEMP 98.6
[2023-12-24] MEDS ORDERED: ONDANSETRON HCL 4 MG TABLET PO ONE (03:45)
[2023-12-24 04:20] LABS: APPEARANCE,URINE CLEAR (CLEAR); BILIRUBIN,URINE NEGATIVE (NEGATIVE); COLOR,URINE YELLOW (YELLOW); GLUCOSE, URINE (UA) NEGATIVE (NEGATIVE); KETONES,URINE TRACE mg/dL (NEGATIVE); LEUKOCYTE ESTERASE ,URINE NEGATIVE (NEGATIVE); NITRATE,URINE NEGATIVE (NEGATIVE); OCCULT BLOOD,URINE NEGATIVE (NEGATIVE); PROTEIN,URINE TRACE mg/dL (NEGATIVE); SPECIFIC GRAVITIY, URINE 1.022 (1.003-1.030); UROBILINOGEN,URINE <=1.0 mg/dL (<=1.0)
[2023-12-24 04:49] LABS: BASOPHILS % (AUTO) 0.5 % (0.0-2.0); EOSINOPHILS % (AUTO) 5.2 % (1.0-6.0); HEMATOCRIT 38.2 % (36-46); HEMOGLOBIN 12.6 g/dL (12.0-16.0); LYMPHOCYTES # (AUTO) 2.3 K/uL (1.0-4.8); MEAN CORPUSCULAR HEMOGLOBIN 27.4 pg (26.0-34.0); MEAN CORPUSCULAR HGB CONC 32.9 G/dL (31.0-37.0); MEAN CORPUSCULAR VOLUME 84 fL (80-100); MONOCYTES # (AUTO) 1.2 K/uL (0.1-1.0); MONOCYTES % (AUTO) 11.7 % (2.0-9.0); NEUTROPHILS % (AUTO) 59.6 % (40.0-70.0); PLATELET COUNT (AUTO) 200 K/uL (150-450); RED BLOOD CELL COUNT(AUTO) 4.57 MIL/uL (4.00-5.20)
[2023-12-24 05:06] LABS: ANION GAP 4 mmol/L (8-16); CALCIUM, TOTAL 8.7 mg/dL (8.8-10.5); CARBON DIOXIDE 32 mmol/L (22-29); CHLORIDE 103 mmol/L (98-107); CREATININE 0.75 mg/dL (0.60-1.30); GLOMERULAR FILTR. RATE CALC > 60 mL/min (>60); GLUCOSE,RANDOM 91 mg/dL (70-110); POTASSIUM 4.4 mmol/L (3.5-5.1); SODIUM SERUM 139 mmol/L (136-145); UREA NITROGEN, BLOOD 15 mg/dL (7-18)
[2023-12-24 05:11] LABS: ALANINE AMINOTRANSFERASE 31 U/L (12-78); ALBUMIN 2.6 g/dL (3.4-5.0); ALKALINE PHOSPHATASE 88 U/L (46-116); ASPARTATE AMINOTRANSFERASE 22 U/L (15-37); BILIRUBIN,TOTAL 0.3 mg/dL (0.1-1.0); LIPASE 24 U/L (16-77); TOTAL PROTEIN, SERUM 6.6 g/dL (6.4-8.2)
[2023-12-24] MEDS ORDERED: ONDA-104 PO (05:31)
[2023-12-24 05:34] VITALS: BP 136/57; PULSE 77; RESP 18
== END 2023-12-24 06:05 | disposition home or self-care (01) ==
LOC: EMS 00:17
DX: R11.2 Nausea with vomiting, unspecified (principal); F41.9 Anxiety disorder, unspecified; F31.9 Bipolar disorder, unspecified; K59.00 Constipation, unspecified; E78.00 Pure hypercholesterolemia, unspecified; I10 Essential (primary) hypertension; F20.9 Schizophrenia, unspecified; N15.9 Renal tubulo-interstitial disease, unspecified; Z87.440 Personal history of urinary (tract) infections; Z88.2 Allergy status to sulfonamides
CPT/HCPCS: 99283; 80053; 81003; 83690; 85025; 36415; Q0162

== ENCOUNTER 2024-04-25 17:08 | Emergency (ER) | payer OTHER ==
[~2024-04-25] VITALS: Ht 165.1 cm; Wt 106.8 kg
[~2024-04-25 17:08] MED LIST changes: -DOXY-469 PO; +DOXY100C61 PO
[2024-04-25 17:48] VITALS: TEMP 98.6
[2024-04-25 18:50] VITALS: BP 91/71; PULSE 81; RESP 18
[2024-04-25] MEDS ORDERED: PANT40TA54 PO (20:23)
[2024-04-25] MEDS ORDERED: FAMO40TA7 PO (20:23)
[2024-04-25 20:38] LABS: BASOPHILS % (AUTO) 0.6 % (0.0-2.0); EOSINOPHILS % (AUTO) 0.6 % (1.0-6.0); HEMATOCRIT 40.9 % (36-46); HEMOGLOBIN 13.5 g/dL (12.0-16.0); LYMPHOCYTES # (AUTO) 3.3 K/uL (1.0-4.8); LYMPHOCYTES % (AUTO) 28.2 % (22.0-44.0); MEAN CORPUSCULAR HEMOGLOBIN 27.9 pg (26.0-34.0); MEAN CORPUSCULAR VOLUME 84 fL (80-100); MONOCYTES # (AUTO) 1.2 K/uL (0.1-1.0); MONOCYTES % (AUTO) 10.2 % (2.0-9.0); NEUTROPHILS # (AUTO) 7.1 K/uL (1.8-7.7); NEUTROPHILS % (AUTO) 60.4 % (40.0-70.0); PLATELET COUNT (AUTO) 236 K/uL (150-450); RED BLOOD CELL COUNT(AUTO) 4.84 MIL/uL (4.00-5.20); RED CELL DISTRIBUTION WIDTH 15.1 % (11.5-14.5); WHITE BLOOD COUNT (AUTO) 11.7 K/uL (4.5-11.0)
[2024-04-25 20:47] LABS: ANION GAP 6 mmol/L (8-16); CALCIUM, TOTAL 9.2 mg/dL (8.8-10.5); CARBON DIOXIDE 30 mmol/L (22-29); CHLORIDE 102 mmol/L (98-107); CREATININE 0.76 mg/dL (0.60-1.30); GLOMERULAR FILTR. RATE CALC > 60 mL/min (>60); GLUCOSE,RANDOM 99 mg/dL (70-110); POTASSIUM 4.3 mmol/L (3.5-5.1); SODIUM SERUM 138 mmol/L (136-145); UREA NITROGEN, BLOOD 15 mg/dL (7-18)
[2024-04-25] MEDS: KETOROLAC TROMETHAMINE 60 MG/2 ML VIAL IM ONE (20:47)
[2024-04-25] MEDS: ACETAMINOPHEN/CODEINE 300-30 MG TABLET PO ONE (20:48)
[2024-04-25] MEDS ORDERED: IBUP-1554 PO (21:16)
== END 2024-04-26 02:28 | disposition home or self-care (01) ==
LOC: EMS 17:12
DX: N94.6 Dysmenorrhea, unspecified (principal); R10.2 Pelvic and perineal pain; Z88.2 Allergy status to sulfonamides
CPT/HCPCS: 99285; 76856; 80048; 84703; 85025; 36415; 96372; J1885

== ENCOUNTER 2024-05-29 21:43 | Emergency (ER) | payer OTHER ==
[~2024-05-29] VITALS: Ht 165.1 cm; Wt 107.0 kg
[~2024-05-29 21:43] MED LIST changes: +DIVA-153 PO; -DIVA500T53 PO; -DOXY100C61 PO; +FAMO40TA7 PO; +IBUP-1554 PO; +PANT40TA54 PO
[2024-05-29 22:09] VITALS: TEMP 99.6
[2024-05-29 23:26] LABS: BASOPHILS % (AUTO) 0.3 % (0.0-2.0); EOSINOPHILS % (AUTO) 3.1 % (1.0-6.0); HEMATOCRIT 38.3 % (36-46); HEMOGLOBIN 12.6 g/dL (12.0-16.0); LYMPHOCYTES # (AUTO) 1.6 K/uL (1.0-4.8); LYMPHOCYTES % (AUTO) 16.4 % (22.0-44.0); MEAN CORPUSCULAR HEMOGLOBIN 27.9 pg (26.0-34.0); MEAN CORPUSCULAR HGB CONC 32.8 G/dL (31.0-37.0); MEAN CORPUSCULAR VOLUME 85 fL (80-100); MONOCYTES # (AUTO) 1.9 K/uL (0.1-1.0); NEUTROPHILS # (AUTO) 5.8 K/uL (1.8-7.7); NEUTROPHILS % (AUTO) 60.2 % (40.0-70.0); PLATELET COUNT (AUTO) 218 K/uL (150-450); RED BLOOD CELL COUNT(AUTO) 4.51 MIL/uL (4.00-5.20); RED CELL DISTRIBUTION WIDTH 15.7 % (11.5-14.5); WHITE BLOOD COUNT (AUTO) 9.6 K/uL (4.5-11.0)
[2024-05-29] MEDS: ONDANSETRON HCL 4 MG/2 ML VIAL IVP ONE (23:26)
[2024-05-29] MEDS: ACETAMINOPHEN 500 MG TABLET PO ONE (23:26)
[2024-05-29] MEDS: SODIUM CHLORIDE 0.9% 2,000 ML IV ONE (23:27)
[2024-05-29] MEDS: KETOROLAC TROMETHAMINE 30 MG/ML VIAL IVP ONE (23:27)
[2024-05-29 23:37] LABS: ANION GAP 6 mmol/L (8-16); CALCIUM, TOTAL 8.8 mg/dL (8.8-10.5); CARBON DIOXIDE 30 mmol/L (22-29); CHLORIDE 100 mmol/L (98-107); GLOMERULAR FILTR. RATE CALC > 60 mL/min (>60); GLUCOSE,RANDOM 110 mg/dL (70-110); POTASSIUM 4.4 mmol/L (3.5-5.1); SODIUM SERUM 136 mmol/L (136-145); UREA NITROGEN, BLOOD 13 mg/dL (7-18)
[2024-05-29 23:48] LABS: ALANINE AMINOTRANSFERASE 35 U/L (12-78); ALBUMIN 2.6 g/dL (3.4-5.0); ALKALINE PHOSPHATASE 81 U/L (46-116); ASPARTATE AMINOTRANSFERASE 46 U/L (15-37); BILIRUBIN,TOTAL 0.5 mg/dL (0.1-1.0); HCG,QUANTITATIVE < 1 mIU/mL (0-6); LIPASE 45 U/L (16-77)
[2024-05-30] MEDS ORDERED: ONDA-104 PO (01:13)
[2024-05-30 01:27] LABS: APPEARANCE,URINE CLEAR (CLEAR); BILIRUBIN,URINE NEGATIVE (NEGATIVE); COLOR,URINE YELLOW (YELLOW); GLUCOSE, URINE (UA) NEGATIVE (NEGATIVE); KETONES,URINE NEGATIVE (NEGATIVE); LEUKOCYTE ESTERASE ,URINE TRACE (NEGATIVE); NITRATE,URINE NEGATIVE (NEGATIVE); OCCULT BLOOD,URINE NEGATIVE (NEGATIVE); PH,URINE 5.5 (5.0-8.0); PROTEIN,URINE NEGATIVE (NEGATIVE); SPECIFIC GRAVITIY, URINE 1.014 (1.003-1.030); UROBILINOGEN,URINE <=1.0 mg/dL (<=1.0)
[2024-05-30 01:58] LABS: BACTERIA,URINE None Seen /HPF (None Seen); RBC,URINE None Seen /HPF (0-2); SQUAMOUS EPITHELIAL CELL,UR Few /LPF (None Seen); WBC,URINE 0-2 /HPF (0-5)
[2024-05-30 02:15] VITALS: BP 119/72; PULSE 95; RESP 18
== END 2024-05-30 05:13 | disposition home or self-care (01) ==
LOC: EMS 21:43
DX: K52.9 Noninfective gastroenteritis and colitis, unspecified (principal); E78.00 Pure hypercholesterolemia, unspecified; I10 Essential (primary) hypertension; K59.00 Constipation, unspecified; F41.9 Anxiety disorder, unspecified; F31.9 Bipolar disorder, unspecified; Z87.440 Personal history of urinary (tract) infections; Z88.2 Allergy status to sulfonamides
CPT/HCPCS: 99284; 96374; 96361; 96375; 80053; 81001; 83690; 84702; 85025; 36415; J1885; J2405

== ENCOUNTER → 2024-06-11 | Emergency (ER) | payer OTHER ==
[~2024-06-11] VITALS: Ht 165.1 cm; Wt 107.7 kg
[2024-06-11 10:45] VITALS: BP 98/54; PULSE 85; RESP 18; TEMP 98.2
== END | disposition home or self-care (01) ==
LOC: EMS 10:34
DX: S30.1XXA Contusion of abdominal wall, initial encounter (principal); I10 Essential (primary) hypertension; Z88.2 Allergy status to sulfonamides; W50.3XXA Accidental bite by another person, initial encounter; Y93.89 Activity, other specified; Y92.89 Other specified places as the place of occurrence of the external cause; Y99.8 Other external cause status
CPT/HCPCS: 99281; Z7502

== ENCOUNTER 2024-10-05 11:01 | Emergency (ER) | payer OTHER ==
[~2024-10-05] VITALS: Ht 165.1 cm; Wt 91.8 kg
[2024-10-05 11:07] VITALS: TEMP 98.2
[2024-10-05] MEDS ORDERED: AMOX-457 PO (12:12)
[2024-10-05 13:00] VITALS: BP 113/78; PULSE 78; RESP 16; O2SAT 98
== END 2024-10-05 13:38 | disposition home or self-care (01) ==
LOC: EMS 11:01
DX: K04.7 Periapical abscess without sinus (principal); I10 Essential (primary) hypertension; E78.00 Pure hypercholesterolemia, unspecified; F20.9 Schizophrenia, unspecified; Z88.1 Allergy status to other antibiotic agents; Z88.2 Allergy status to sulfonamides; Z87.19 Personal history of other diseases of the digestive system; Z87.440 Personal history of urinary (tract) infections; Z79.899 Other long term (current) drug therapy
CPT/HCPCS: 99283